=== PATIENT | female | born 1980 | race Caucasian/White ===

== ENCOUNTER 2017-08-01 22:42 | Emergency (ER) | payer BC ==
[~2017-08-01] VITALS: Ht 177.8 cm; Wt 130.0 kg
[2017-08-01 22:45] VITALS: BP 161/73; PULSE 75; RESP 18; TEMP 97.8; O2SAT 98
[2017-08-01 22:59] VITALS: BP 153/87; PULSE 83; RESP 20; O2SAT 99
[2017-08-01] MEDS ORDERED: AMLO5TAB2 PO (23:03)
[2017-08-01] MEDS ORDERED: SODIUM CHLOR 0.9% 1000 ML INJ 1,000 ML IV SCH (23:07)
--- NOTE | 2017-08-01 23:10 | PD ---
HPI Chief Complaint: Abdominal Pain Time Seen by Provider: 23:07 Travel History International Travel<30 days: No Contact w/Intl Traveler<30days: No Traveled to known affect area: No History of Present Illness HPI 37-year-old female presents to the emergency department by private transportation in the care of her family for evaluation of sudden onset right lower quadrant abdominal pain and mild flank pain. Patient's had associated nausea without vomiting. No fever or chills. Mild anorexia. Patient states he cannot find position of comfort prefers to sit still. No prior history of kidney stones. Last menstrual period was 2 weeks ago and normal for her and denies . No vaginal bleeding or hematuria. No dysuria frequency or urgency. Patient's had no diarrhea or constipation. No report of hematemesis coffee-ground emesis melena hematochezia. She rates pain as severe. No previous history of similar type pain. Patient is treated for hypertension and previous tonsillectomy. PFSH Past Medical History Narrative Medical tonsillectomy Diminished Hearing: No Hypertension: Yes Tetanus Vaccination: > 5 Years Influenza Vaccination: No ?: Not LMP: 07/19/2017 Past Surgical History Tonsillectomy: Yes (T&A) Social History Alcohol Use: Yes (social ) Tobacco Use: Yes Substance Use: No Allergies-Medications (Allergen,Severity, Reaction): Coded Allergies: No Known Allergies (Verified Allergy, Unknown, 08/01/17) Reported Meds & Prescriptions Reported Meds & Active Scripts Active Lortab (Hydrocodone-Acetaminophen) 5-325 Mg Tab 1 Tab PO Q6H PRN Phenergan (Promethazine HCl) 25 Mg Tablet 25 Mg PO Q6H PRN Anaprox DS (Naproxen Sodium) 550 Mg Tab 550 Mg PO Q12HR Cipro (Ciprofloxacin HCl) 500 Mg Tab 500 Mg PO BID 7 Days Reported Amlodipine (Amlodipine Besylate) 5 Mg Tab 5 Mg PO DAILY Review of Systems Except as stated in HPI: all other systems reviewed are Neg Physical Exam Narrative GENERAL: Well-developed well-nourished female in obvious discomfort no respiratory distress SKIN: Warm and dry. HEAD: Normocephalic. EYES: No scleral icterus. No injection or drainage. NECK: Supple, trachea midline. No JVD or lymphadenopathy. CARDIOVASCULAR: Regular rate and rhythm without murmurs, gallops, or rubs. RESPIRATORY: Breath sounds equal bilaterally. No accessory muscle use. GASTROINTESTINAL: Abdomen soft, tender to palpation right lower quadrant and mild suprapubic tenderness with voluntary guarding no rebound, nondistended. MUSCULOSKELETAL: No cyanosis, or edema. BACK: Nontender without obvious deformity. No CVA tenderness. Data Data Last Documented VS Vital Signs Date Time Temp Pulse Resp B/P (MAP) Pulse Ox O2 Delivery O2 Flow Rate FiO2 08/02/17 06:22 71 18 115/72 (86) 98 08/02/17 04:47 Room Air 08/01/17 22:45 97.8 Orders Orders Complete Blood Count With Diff (08/01/17 23:07) Comprehensive Metabolic Panel (08/01/17 23:07) Lipase (08/01/17 23:07) Lactic Acid (08/01/17 23:07) Urinalysis - C+S If Indicated (08/01/17 23:07) Ct Abd/Pel W Iv Contrast(Rout) (08/01/17 23:07) Iv Access Insert/Monitor (08/01/17 23:07) Ecg Monitoring (08/01/17 23:07) Oximetry (08/01/17 23:07) Ondansetron Inj (Zofran Inj) (08/01/17 23:15) Sodium Chlor 0.9% 1000 Ml Inj (Ns 1000 M (08/01/17 23:07) Sodium Chloride 0.9% Flush (Ns Flush) (08/01/17 23:15) Hydromorphone Pf Inj (Dilaudid Pf Inj) (08/01/17 23:15) Ed Urine Pregnancytest Poc (08/01/17 23:07) Iohexol 350 Inj (Omnipaque 350 Inj) (08/02/17 01:00) Urine Culture (08/02/17 01:10) Us Pelvis Comp W Dop Transvag (08/02/17 ) Ciprofloxacin (Cipro) (08/02/17 05:45) Labs Laboratory Tests Test 08/01/17 23:20 08/02/17 01:10 White Blood Count 16.0 TH/MM3 Red Blood Count 5.09 MIL/MM3 Hemoglobin 14.0 GM/DL Hematocrit 43.2 % Mean Corpuscular Volume 84.9 FL Mean Corpuscular Hemoglobin 27.5 PG Mean Corpuscular Hemoglobin Concent 32.4 % Red Cell Distribution Width 14.1 % Platelet Count 363 TH/MM3 Mean Platelet Volume 9.0 FL Neutrophils (%) (Auto) 64.0 % Lymphocytes (%) (Auto) 26.8 % Monocytes (%) (Auto) 6.8 % Eosinophils (%) (Auto) 1.6 % Basophils (%) (Auto) 0.8 % Neutrophils # (Auto) 10.3 TH/MM3 Lymphocytes # (Auto) 4.3 TH/MM3 Monocytes # (Auto) 1.1 TH/MM3 Eosinophils # (Auto) 0.3 TH/MM3 Basophils # (Auto) 0.1 TH/MM3 CBC Comment DIFF FINAL Differential Comment Blood Urea Nitrogen 12 MG/DL Creatinine 0.80 MG/DL Random Glucose 102 MG/DL Total Protein 7.1 GM/DL Albumin 3.3 GM/DL Calcium Level 8.7 MG/DL Alkaline Phosphatase 82 U/L Aspartate Amino Transf (AST/SGOT) 13 U/L Alanine Aminotransferase (ALT/SGPT) 23 U/L Total Bilirubin 0.3 MG/DL Sodium Level 140 MEQ/L Potassium Level 4.3 MEQ/L Chloride Level 108 MEQ/L Carbon Dioxide Level 23.9 MEQ/L Anion Gap 8 MEQ/L Estimat Glomerular Filtration Rate 82 ML/MIN Lactic Acid Level 1.3 mmol/L Lipase 240 U/L Urine Color YELLOW Urine Turbidity HAZY Urine pH 6.0 Urine Specific [place] 1.037 Urine Protein TRACE mg/dL Urine Glucose (UA) NEG mg/dL Urine Ketones NEG mg/dL Urine Occult Blood NEG Urine Nitrite NEG Urine Bilirubin NEG Urine Urobilinogen 2.0 MG/DL Urine Leukocyte Esterase LARGE Urine RBC 3 /hpf Urine WBC 6 /hpf Urine Squamous Epithelial Cells 15 /hpf Urine Bacteria MANY /hpf Urine Mucus FEW /lpf Microscopic Urinalysis Comment CULTURE INDICATED MDM Medical Decision Making Medical Screen Exam Complete: Yes Emergency Medical Condition: Yes Medical Record Reviewed: Yes Interpretation(s) Last Impressions Abdomen/Pelvis/Transvag US 08/02/17 0000 Signed Impressions: Service Date/Time: Wednesday, August 02, 2017 02:52 - CONCLUSION: 1. 5.6 cm right ovarian cyst. Trace free fluid. Small nabothian cysts. Candelario Fraser MD ADDENDUM: There is positive blood flow to both ovaries without evidence for torsion. Candelario Fraser MD Abdomen/Pelvis CT 08/01/17 0010 Signed Impressions: Service Date/Time: Wednesday, August 02, 2017 00:49 - CONCLUSION: 1. 5.9 cm cystic appearing lesion in the right adnexa probably exophytic from the right ovary. No acute findings within the abdomen and pelvis. Candelario Fraser MD CBC & BMP Diagram 08/01/17 23:20 Total Protein 7.1, Albumin 3.3 L, Calcium Level 8.7, Alkaline Phosphatase 82, Aspartate Amino Transf (AST/SGOT) 13 L, Alanine Aminotransferase (ALT/SGPT) 23, Total Bilirubin 0.3 Vital Signs Date Time Temp Pulse Resp B/P (MAP) Pulse Ox O2 Delivery O2 Flow Rate FiO2 08/02/17 04:47 70 18 117/67 (84) 97 Room Air 08/02/17 01:59 72 18 125/76 (92) 98 Room Air 08/02/17 00:32 73 18 110/56 (74) 93 Room Air 08/01/17 23:38 72 18 132/72 (92) 95 Room Air 08/01/17 22:59 83 20 153/87 (109) 99 Room Air 08/01/17 22:45 97.8 75 18 161/73 (102) 98 Room Air Differential Diagnosis Abdominal pain, appendicitis, ruptured ovarian cyst, ovarian torsion, renal colic, ectopic Narrative Course CT reading discussed with radiologist appendix is seen and is normal per radiologist US discussed with radiologist and good blood flow to the ovaries Diagnosis Primary Impression: Ruptured ovarian cyst Additional Impressions: Ovarian cyst Qualified Codes: N83.201 - Unspecified ovarian cyst, right side UTI (urinary tract infection) Referrals: Trainer call for appointment Patient Instructions: General Instructions Additional Instructions: Increase fluid hydration No work times one day Follow-up with obstetrics technician Take pain medication as prescribed as needed Take nausea medicine as prescribed as needed Complete course of antibiotic as prescribed Monitor temperature for fever Return to the emergency room for pain fever vomiting or any concerns Med/Other Pt SpecificInfo: Prescription(s) given Scripts Hydrocodone-Acetaminophen (Lortab) 5-325 Mg Tab 1 TAB PO Q6H Y for PAIN, #7 TAB 0 Refills Prov: Nila Ruiz MD 08/02/17 Promethazine (Phenergan) 25 Mg Tablet 25 MG PO Q6H Y for NAUSEA OR VOMITING, #7 TAB 0 Refills Prov: Nila Ruiz MD 08/02/17 Naproxen Sodium DS (Anaprox DS) 550 Mg Tab 550 MG PO Q12HR for Pain, #12 TAB 0 Refills Prov: Nila Ruiz MD 08/02/17 Ciprofloxacin (Cipro) 500 Mg Tab 500 MG PO BID for Infection for 7 Days, #14 TAB 0 Refills Prov: Nila Ruiz MD 08/02/17 Nila Ruiz MD Aug 01, 2017 23:10
[2017-08-01] MEDS ORDERED: HYDROmorphone HCL PF 1 MG/ML VIAL IV PUSH ONE (23:15)
[2017-08-01] MEDS ORDERED: SODIUM CHLORIDE 0.9% FLUSH 10 ML FLUSH IV FLUSH PRN (23:15)
[2017-08-01] MEDS ORDERED: ONDANSETRON HCL 4 MG/2 ML VIAL IVP ONE (23:15)
[2017-08-01 23:35] LABS: AUTOMATED NEUTROPHIL # 10.3 TH/MM3 (1.8-7.7); BASOPHIL # 0.1 TH/MM3 (0-0.2); BASOPHIL % 0.8 % (0.0-2.0); EOSINOPHIL # 0.3 TH/MM3 (0-0.4); EOSINOPHIL % 1.6 % (0.0-4.0); HEMATOCRIT 43.2 % (35.0-46.0); HEMO FLAGS DIFF FINAL; LYMPH % 26.8 % (9.0-44.0); LYMPHOCYTE # 4.3 TH/MM3 (1.0-4.8); MEAN CELL VOLUME 84.9 FL (80.0-100.0); MEAN CORPUSCULAR HEMOGLOBIN 27.5 PG (27.0-34.0); MEAN CORPUSCULAR HGB CONC 32.4 % (32.0-36.0); MONO % 6.8 % (0.0-8.0); PLATELET COUNT 363 TH/MM3 (150-450); RED BLOOD COUNT 5.09 MIL/MM3 (4.00-5.30); RED CELL DISTRIBUTION WIDTH 14.1 % (11.6-17.2)
[2017-08-01 23:38] VITALS: BP 132/72; PULSE 72; RESP 18; O2SAT 95
[2017-08-02 00:24] LABS: ANION GAP 8 MEQ/L (5-15); AST (GOT) 13 U/L (15-37); BICARBONATE 23.9 MEQ/L (21.0-32.0); BLOOD UREA NITROGEN 12 MG/DL (7-18); CHLORIDE 108 MEQ/L (98-107); GLOMERULAR FILTRATION RATE 82 ML/MIN (>89); POTASSIUM 4.3 MEQ/L (3.5-5.1); SODIUM (NA) 140 MEQ/L (136-145)
[2017-08-02 00:25] LABS: ALT (GPT) 23 U/L (10-53)
[2017-08-02 00:28] LABS: ALKALINE PHOSPHATASE 82 U/L (45-117); TOTAL BILIRUBIN ADULT 0.3 MG/DL (0.2-1.0)
[2017-08-02 00:32] VITALS: BP 110/56; PULSE 73; RESP 18; O2SAT 93
[2017-08-02] MEDS ORDERED: IOHEXOL 350 MG/ML 10 ML VIAL (for RAD DIAG) IVCONTRAST ONE (01:00)
--- NOTE | 2017-08-02 01:25 | RADRPT ---
EXAM DATE/TIME: 08/02/2017 00:49 [facility] COMPARISON: No previous studies available for comparison. INDICATIONS : Abdominal cramping radiating to back. IV CONTRAST: 95 cc Omnipaque 350 (iohexol) IV ORAL CONTRAST: No oral contrast ingested. RADIATION DOSE: 23.18 CTDIvol (mGy) MEDICAL HISTORY : Hypertension. SURGICAL HISTORY : Tonsillectomy. ENCOUNTER: Initial ACUITY: 1 day PAIN SCALE: 7/10 LOCATION: Bilateral abdomen TECHNIQUE: Volumetric scanning of the abdomen and pelvis was performed. Using automated exposure control and ad justment of the mA and/or kV according to patient size, radiation dose was kept as low as reasonably achievable to obtain optimal diagnostic quality images. DICOM format image data is available electro nically for review and comparison. FINDINGS: Lung bases are clear. Mild fatty liver. Spleen, adrenals, kidneys and pancreas unremarkable. No calci fied gallstones or biliary ductal dilatation. No free fluid or free air. No bowel obstruction. There is a 5.9 cm circumscribed low attenuation right adnexal lesion most characteristic of an exophy tic right ovarian cyst. CONCLUSION: 1. 5.9 cm cystic appearing lesion in the right adnexa probably exophytic from the right ovary. No acu te findings within the abdomen and pelvis. Candelario Fraser MD on August 02, 2017 at 1:16 Board Certified Radiologist. This report was verified electronically.
[2017-08-02 01:29] LABS: BACTERIA, URINE MANY /hpf; BLOOD, URINE NEG (NEG); COMMENT (UR) CULTURE INDICATED; CULTURE IF INDICATED CULTURE INDICATED; GLUCOSE,URINE NEG (NEG); KETONE, URINE NEG (NEG); MUCUS URINE FEW /lpf (OCC); NITRITE,URINE NEG (NEG); SQUAMOUS EPITHELIAL CELL URINE 15 /hpf (0-5); URINE COLOR YELLOW (YELLW/STRAW)
[2017-08-02 01:59] VITALS: BP 125/76; PULSE 72; RESP 18; O2SAT 98
--- NOTE | 2017-08-02 04:25 | RADRPT ---
EXAM DATE/TIME: 08/02/2017 02:52 This report includes an Addendum and supersedes previous reports for this exam. [facility] COMPARISON: No previous studies available for comparison. INDICATIONS : Pelvic pain. MEDICAL HISTORY : Hypertension. Tobacco use. SURGICAL HISTORY : Tonsillectomy. ENCOUNTER: Initial ACUITY: 2 days PAIN SCORE: 8/10 LOCATION: Bilateral pelvis MEASUREMENTS: UTERUS: 8.4 x 4.4 x 4.2 cm ENDOMETRIAL STRIPE: 8 mm RIGHT OVARY: 2.7 x 2.2 x 2.0 cm LEFT OVARY: 3.3 x 3.0 x 1.8 cm FINDINGS: Small nabothian cyst present in the cervical region. Uterus otherwise unremarkable. Endometrial strip e thickness is 8 mm. 5.5 cm x 5.6 cm cyst extending off right ovary. Left ovary unremarkable. Trace free fluid present. CONCLUSION: 1. 5.6 cm right ovarian cyst. Trace free fluid. Small nabothian cysts. Candelario Fraser MD on August 02, 2017 at 4:22 Board Certified Radiologist. This report was verified electronically. ADDENDUM: There is positive blood flow to both ovaries without evidence for torsion. Candelario Fraser MD on August 02, 2017 at 5:06 Board Certified Radiologist. This report was verified electronically.
[2017-08-02 04:47] VITALS: BP 117/67; PULSE 70; RESP 18; O2SAT 97
[2017-08-02] MEDS ORDERED: CIPROFLOXACIN 500 MG TAB PO ONE (05:45)
[2017-08-02] MEDS ORDERED: PROM25TA10 PO (06:20)
[2017-08-02] MEDS ORDERED: HYDR-3533 PO (06:20)
[2017-08-02] MEDS ORDERED: NAPR550 PO (06:20)
[2017-08-02] MEDS ORDERED: CIPR-9 PO (06:20)
[2017-08-02 06:22] VITALS: BP 115/72
== END 2017-08-02 06:29 | disposition home or self-care (01) ==
LOC: NEPC 22:42
DX: N83.291 Other ovarian cyst, right side (principal); N83.201 Unspecified ovarian cyst, right side; N39.0 Urinary tract infection, site not specified; I10 Essential (primary) hypertension; Z72.0 Tobacco use
CPT/HCPCS: 74177; 76830; 76856; 80053; 81001; 83605; 83690; 84703; 85025; 87086; 93975; 96374; 96375; 99285; J1170; J2405; J7030; Q9967